=== PATIENT | female | born 1965 | race Caucasian/White ===

== ENCOUNTER → 2020-05-27 12:42 | Outpatient (CLI) | payer BC, SELFPAY ==
--- NOTE | ~2020-05-27 | US_ITS ---
EXAMINATION: US transvaginal DATE: 05/27/2020 13:16 INDICATION: Postmenopausal bleeding TECHNIQUE: Multiple endovaginal sonographic images of the pelvis were obtained. COMPARISON: None. FINDINGS: The uterus measures 10.5 x 5.5 x 7.4 cm. A 4.7 x 3.4 x 3.9 cm isoechoic mass of the anterio r uterine body has the appearance of an intramural fibroid The endometrial complex measures 14 mm. Th e right ovary measures 3.6 x 2.8 x 4.2 cm and contains a 2.9 cm cyst. The left ovary measures 2.1 x 0 .7 x 2.3 cm. There is normal vascular flow in the ovaries. There is no free fluid in the pelvis. IMPRESSION: 1. Endometrial thickening which may be due to hyperplasia, polyp, or malignancy. Endometrial sampling is recommended. Reviewed, dictated and finalized at location A. IMPRESSION: 1. Endometrial thickening which may be due to hyperplasia, polyp, or malignancy . Endometrial sampling is recommended.
== END ==
PROVIDERS: Visit Provider Nurse Practitioner
DX: N95.0 Postmenopausal bleeding (principal)
CPT/HCPCS: 76830

== ENCOUNTER 2020-09-12 15:11 | Outpatient (CLI) | payer BC, SELFPAY ==
--- NOTE | ~2020-09-12 | MM_ITS ---
EXAMINATION: MM scrn edgar implant BI w mihir HISTORY: Screening mammogram TECHNIQUE: Craniocaudal and mediolateral oblique 3-D tomosynthesis images with implant displacement a nd synthetic 2-D images were generated. Craniocaudal and mediolateral oblique views of the breasts wi thout implant displacement were obtained using full field digital mammography. CAD analysis was submi tted and interpreted. COMPARISON: 08/21/2019, 08/18/2018, 07/08/2017 BREAST PARENCHYMAL COMPOSITION: There are scattered areas of fibroglandular density. FINDINGS: There is no evidence of suspicious mass, calcification, or architectural distortion to sugg est malignancy in either breast. There has been no suspicious interval change. IMPRESSION: 1. No mammographic evidence of malignancy. 2. Recommend routine screening mammography in one year. BI-RADS Category 1: Negative Reviewed, dictated and finalized at location A. MAKER
== END 2020-09-12 15:12 | disposition home or self-care (01) ==
LOC: ANHIMG 15:14
PROVIDERS: Visit Provider Nurse Practitioner
DX: Z12.31 Encounter for screening mammogram for malignant neoplasm of breast (principal)
CPT/HCPCS: 77063; 77067